=== PATIENT | female | born 1930 | race Caucasian/White ===

== ENCOUNTER 2022-05-01 22:18 | Emergency (ER) | payer MEDICARE, BC ==
[2022-05-01] MEDS ORDERED: Lidocaine 1% w/Epinephrine 1:100K 20 ML VIAL ONE (23:49)
== END 2022-05-02 00:38 | disposition home or self-care (01) ==
LOC: CSHERS 22:18
DX: K06.8 Other specified disorders of gingiva and edentulous alveolar ridge (principal); Z79.01 Long term (current) use of anticoagulants; I48.91 Unspecified atrial fibrillation; E03.9 Hypothyroidism, unspecified
CPT/HCPCS: 99283

== ENCOUNTER 2022-10-01 13:19 | Outpatient (CLI) | payer MEDICARE, BC | END 2022-10-01 13:20 | disposition home or self-care (01) | LOC: CSHCT 13:19 | PROVIDERS: ATTEND Internal Medicine | DX: M54.16 Radiculopathy, lumbar region (principal); M47.816 Spondylosis without myelopathy or radiculopathy, lumbar region; K80.20 Calculus of gallbladder without cholecystitis without obstruction | CPT/HCPCS: 72131 ==